=== PATIENT | female | born 1960 | race Caucasian/White ===

== ENCOUNTER 2016-10-14 20:08 | Emergency (ER) | payer OTHER ==
[~2016-10-14] VITALS: Ht 160 cm; Wt 66.3 kg
[~2016-10-14 20:08] MED LIST: ATOR40TA49 PO; ECASA PO; LISI10 PO; LORTA5 PO; VENL75 PO
[2016-10-14 20:14] VITALS: BP 197/91; PULSE 106; RESP 18; TEMP 102.6
--- NOTE | 2016-10-14 20:37 | PD ---
HPI Chief Complaint: Headache Time Seen by Provider: 20:32 Travel History International Travel<30 days: No Contact w/Intl Traveler<30days: No Traveled to known affect area: No History of Present Illness HPI This 55-year-old female says she had an onset of headache around 3:00. At that time she noted that her temp was 103. She has a history of hypertension. She has a history of psoriasis and has arthritis. She has not had a sore throat or cough. He denies dysuria. PFSH Past Medical History Arthritis: Yes (RA) Cardiovascular Problems: Yes High Cholesterol: Yes Cerebrovascular Accident: Yes Genitourinary: No Musculoskeletal: No Neurologic: No Reproductive: No Respiratory: No Para: 2 Past Surgical History Section: Yes Gynecologic Surgery: Yes (2 c-sections) Social History Alcohol Use: Yes (OCCAS) Tobacco Use: Yes Substance Use: No Allergies-Medications (Allergen,Severity, Reaction): Coded Allergies: No Known Allergies (Unverified , 10/14/16) Reported Meds & Prescriptions Reported Meds & Active Scripts Active Prinivil 10 Mg Tab (Lisinopril) 10 Mg Tab 10 Mg PO DAILY Lortab 5/325 Tab (Hydrocodone-Acetaminophen) 1 Tab Tab 1 Tab PO Q6H PRN Lipitor 40 Mg Tab (Atorvastatin Calcium) 40 Mg Tab 20 Mg PO HS 30 Days Ecotrin Regular Strength (Aspirin) 325 Mg Tabec 325 Mg PO DAILY 30 Days Reported Effexor 75 Mg Tab (Venlafaxine HCl) 75 Mg Tab 150 Mg PO DAILY Review of Systems General / Constitutional: Positive: Fever, Chills Eyes: No: Diploplia, Blurred Vision HENT: Positive: Headaches Cardiovascular: No: Chest Pain or Discomfort, Palpitations Respiratory: No: Cough, Shortness of Breath Gastrointestinal: No: Nausea, Vomiting Genitourinary: No: Urgency, Frequency Skin: Positive Rash (psoriasis), No Itching Physical Exam Narrative GENERAL: Well-developed female SKIN: Focused skin assessment warm/dry. HEAD: Atraumatic. Normocephalic. EYES: Pupils equal and round. No scleral icterus. No injection or drainage. ENT: No nasal bleeding or discharge. Mucous membranes pink and moist. NECK: Trachea midline. No JVD. Neck is supple and flexion of the neck does not aggravate her headache CARDIOVASCULAR: Regular rate and rhythm. No murmur appreciated. RESPIRATORY: No accessory muscle use. Clear to auscultation. Breath sounds equal bilaterally. GASTROINTESTINAL: Abdomen soft, non-tender, nondistended. Hepatic and splenic margins not palpable. MUSCULOSKELETAL: No obvious deformities. No clubbing. No cyanosis. No edema. NEUROLOGICAL: Awake and alert. No obvious cranial nerve deficits. Motor grossly within normal limits. Normal speech. PSYCHIATRIC: Appropriate mood and affect; insight and judgment normal. Data Data Last Documented VS Vital Signs Date Time Temp Pulse Resp B/P (MAP) Pulse Ox O2 Delivery O2 Flow Rate FiO2 10/14/16 21:34 102 18 174/90 (118) 97 Room Air 10/14/16 20:43 102.3 Orders Orders Complete Blood Count With Diff (10/14/16 20:31) Basic Metabolic Panel (Bmp) (10/14/16 20:31) Urinalysis - C+S If Indicated (10/14/16 20:31) Acetaminophen (Tylenol) (10/14/16 20:45) Influenzae A/B Antigen (10/14/16 20:32) Labs Laboratory Tests Test 10/14/16 20:57 White Blood Count 10.4 TH/MM3 Red Blood Count 4.27 MIL/MM3 Hemoglobin 12.2 GM/DL Hematocrit 35.6 % Mean Corpuscular Volume 83.4 FL Mean Corpuscular Hemoglobin 28.6 PG Mean Corpuscular Hemoglobin Concent 34.3 % Red Cell Distribution Width 12.3 % Platelet Count 308 TH/MM3 Mean Platelet Volume 7.3 FL Neutrophils (%) (Auto) 75.4 % Lymphocytes (%) (Auto) 18.4 % Monocytes (%) (Auto) 4.8 % Eosinophils (%) (Auto) 0.7 % Basophils (%) (Auto) 0.7 % Neutrophils # (Auto) 7.8 TH/MM3 Lymphocytes # (Auto) 1.9 TH/MM3 Monocytes # (Auto) 0.5 TH/MM3 Eosinophils # (Auto) 0.1 TH/MM3 Basophils # (Auto) 0.1 TH/MM3 CBC Comment DIFF FINAL Differential Comment Urine Color YELLOW Urine Turbidity CLEAR Urine pH 8.5 Urine Specific Halfway 1.014 Urine Protein NEG mg/dL Urine Glucose (UA) NEG mg/dL Urine Ketones NEG mg/dL Urine Occult Blood NEG Urine Nitrite NEG Urine Bilirubin NEG Urine Leukocyte Esterase NEG Urine WBC 0-2 /hpf Urine Squamous Epithelial Cells 0-5 /hpf Microscopic Urinalysis Comment CULT NOT INDICATED Blood Urea Nitrogen 14 MG/DL Creatinine 0.75 MG/DL Random Glucose 101 MG/DL Calcium Level 9.0 MG/DL Sodium Level 134 MEQ/L Potassium Level 4.2 MEQ/L Chloride Level 100 MEQ/L Carbon Dioxide Level 26.5 MEQ/L Anion Gap 8 MEQ/L Estimat Glomerular Filtration Rate 80 ML/MIN [facility] Medical Decision Making Medical Screen Exam Complete: Yes Emergency Medical Condition: Yes Medical Record Reviewed: Yes Differential Diagnosis Differential includes UTI, viral syndrome, headache secondary to fever, hypertension Narrative Course White count is 10,000. Urine is negative for infection. Influenza test is negative. Impression is viral illness with headache. She'll be released Diagnosis Primary Impression: Viral illness Additional Instructions: Take Tylenol or Motrin for fever Disposition: 01 DISCHARGE HOME Condition: Stable Tc Cisse MD Oct 14, 2016 20:37
[2016-10-14 20:42] VITALS: BP 182/92; PULSE 102; RESP 18; TEMP 102.3; O2SAT 96
[2016-10-14 20:43] VITALS: BP 182/92; PULSE 102; RESP 18; TEMP 102.3; O2SAT 96
[2016-10-14] MEDS ORDERED: ACETAMINOPHEN 325 MG TAB PO ONE (20:45)
[2016-10-14 21:06] LABS: AUTOMATED NEUTROPHIL # 7.8 TH/MM3 (1.8-7.7); BASOPHIL # 0.1 TH/MM3 (0-0.2); BASOPHIL % 0.7 % (0.0-2.0); EOSINOPHIL # 0.1 TH/MM3 (0-0.4); EOSINOPHIL % 0.7 % (0.0-4.0); HEMATOCRIT 35.6 % (35.0-46.0); LYMPH % 18.4 % (9.0-44.0); LYMPHOCYTE # 1.9 TH/MM3 (1.0-4.8); MEAN CELL VOLUME 83.4 FL (80.0-100.0); MEAN CORPUSCULAR HEMOGLOBIN 28.6 PG (27.0-34.0); MEAN CORPUSCULAR HGB CONC 34.3 % (32.0-36.0); MONO % 4.8 % (0.0-8.0); NEUT % 75.4 % (16.0-70.0); PLATELET COUNT 308 TH/MM3 (150-450); RED BLOOD COUNT 4.27 MIL/MM3 (4.00-5.30); RED CELL DISTRIBUTION WIDTH 12.3 % (11.6-17.2); WHITE BLOOD COUNT 10.4 TH/MM3 (4.0-11.0)
[2016-10-14 21:07] LABS: BLOOD, URINE NEG (NEG); GLUCOSE,URINE NEG (NEG); KETONE, URINE NEG (NEG); NITRITE,URINE NEG (NEG); PH, URINE 8.5 (5.0-8.5)
[2016-10-14 21:10] LABS: HEMO FLAGS DIFF FINAL
[2016-10-14 21:12] LABS: COMMENT (UR) CULT NOT INDICATED; CULTURE IF INDICATED CULT NOT INDICATED; SQUAMOUS EPITHELIAL CELL URINE 0-5 /hpf (0-5); URINE COLOR YELLOW (YELLW/STRAW); WBC, URINE 0-2 /hpf (0-5)
[2016-10-14 21:16] LABS: POTASSIUM 4.2 MEQ/L (3.5-5.1)
[2016-10-14 21:19] LABS: BICARBONATE 26.5 MEQ/L (21.0-32.0)
[2016-10-14 21:34] VITALS: BP 174/90; PULSE 102; RESP 18; O2SAT 97
[2016-10-14 22:01] VITALS: BP 167/81; TEMP 101.3
== END 2016-10-14 22:11 | disposition home or self-care (01) ==
LOC: PHED 20:08
DX: B34.9 Viral infection, unspecified (principal); E78.00 Pure hypercholesterolemia, unspecified; I10 Essential (primary) hypertension; Z86.73 Personal history of transient ischemic attack (TIA), and cerebral infarction without residual deficits
CPT/HCPCS: 80048; 81001; 85025; 87804; 99283

== ENCOUNTER 2016-11-28 14:47 | Emergency (ER) | payer OTHER ==
[~2016-11-28] VITALS: Ht 160 cm; Wt 64.6 kg
[2016-11-28 15:06] VITALS: BP 158/79; PULSE 84; RESP 16; TEMP 98.6; O2SAT 100
[2016-11-28] MEDS ORDERED: LISI-515 PO (15:15)
[2016-11-28] MEDS ORDERED: ROSU5 PO (15:15)
[2016-11-28] MEDS ORDERED: VENL75TA PO (15:15)
[2016-11-28] MEDS ORDERED: LIDOCAINE HCL 1% 50 ML VIAL INFIL ONE (16:15)
--- NOTE | 2016-11-28 16:16 | PD ---
HPI Chief Complaint: Bite or Sting Time Seen by Provider: 15:47 Travel History International Travel<30 days: No Contact w/Intl Traveler<30days: No Traveled to known affect area: No History of Present Illness HPI 55-year-old female presents to the emergency room for evaluation of draining abscess to her left breast. Patient states 4 days ago she felt a sudden bug bite her under her left breast. It was never itchy but hurt right away. Patient states she kept thinking it would go away but instead enlarged and became painful. She did not notice any draining until today. Patient denies fever, chills, nausea, and vomiting. PFSH Past Medical History Arthritis: Yes (RA) Autoimmune Disease: Yes (PSORIASIS) Cardiovascular Problems: Yes High Cholesterol: Yes Cerebrovascular Accident: Yes Diabetes: No Diminished Hearing: No Gastrointestinal Disorders: No Genitourinary: No Hypertension: Yes Musculoskeletal: No Neurologic: No Reproductive: No Respiratory: No Tetanus Vaccination: Unknown ?: Not Menopausal: Yes Para: 2 Past Surgical History Section: Yes Gynecologic Surgery: Yes (2 c-sections) Social History Alcohol Use: Yes (OCCAS) Tobacco Use: Yes (1/2 PPD) Substance Use: No Allergies-Medications (Allergen,Severity, Reaction): Coded Allergies: No Known Allergies (Unverified , 11/28/16) Reported Meds & Prescriptions Reported Meds & Active Scripts Active Reported Crestor (Rosuvastatin Calcium) 5 Mg Tab Unknown Dose PO WEEKLY Lisinopril 20 Mg Tab 20 Mg PO DAILY Effexor (Venlafaxine HCl) 75 Mg Tab 150 Mg PO DAILY Review of Systems Except as stated in HPI: all other systems reviewed are Neg Physical Exam Narrative GENERAL: Well-nourished, well-developed female in no acute distress. Afebrile. Ambulatory. SKIN: Focused skin assessment warm/dry. There is an indurated area under the left breast which measures about 2 cm in diameter. It is fluctuant with spontaneous purulent drainage. There is a zone of inflammation around it but no lymphangitis.ss HEAD: Normocephalic. EYES: No scleral icterus. No injection or drainage. NECK: Supple, trachea midline. No JVD or lymphadenopathy. CARDIOVASCULAR: Regular rate and rhythm without murmurs, gallops, or rubs. RESPIRATORY: Breath sounds equal bilaterally. No accessory muscle use. PSYCHIATRIC: No delusional thought processes. No hallucinations. Data Data Last Documented VS Vital Signs Date Time Temp Pulse Resp B/P (MAP) Pulse Ox O2 Delivery O2 Flow Rate FiO2 11/28/16 15:06 98.6 84 16 158/79 (105) 100 Orders Orders Lidocaine 1% Inj (50 Ml) (Xylocaine 1% I (11/28/16 16:15) MDM Medical Decision Making Medical Screen Exam Complete: Yes Emergency Medical Condition: Yes Medical Record Reviewed: Yes Differential Diagnosis Abscess, folliculitis, cellulitis Narrative Course 55 year-old female presents to the emergency room for evaluation of abscess underneath her left breast that she first noticed 4 days ago. Patient states she was bit by a bug but it worsened over time. Never itchy. No systemic signs of infection. Physical exam reveals a 3 cm area of induration. It is spontaneously draining purulent discharge. The open area was extended, see procedure for details patient patient discharged with a prescription for Bactrim and told to follow-up with a PCP or return for worsening symptoms. She understands and agrees to plan. Procedures Procedure Narrative INCISION AND DRAINAGE OF ABSCESS: The area was prepped and was sterilely draped. A subcutaneous wheal of 1% lidocaine with a total number 2 mL was used to anesthetize the area properly. A number 11 scalpel was used to extend the spontaneously draining wound 0.5 cm superficially. The abscess was drained, complex loculations were broken down, and irrigated with normal saline. Cultures were obtained. Sterile dressing applied. Diagnosis Primary Impression: Abscess Referrals: Primary Care Physician Additional Instructions: Rest and drink plenty of fluids. Take Bactrim as directed, until gone. Follow up with a primary care physician. Return to emergency room for worsening symptoms, as discussed. Disposition: 01 DISCHARGE HOME Condition: Stable Bee Miguel Nov 28, 2016 16:16
[2016-11-28] MEDS ORDERED: BACT800T5 PO (16:25)
== END 2016-11-28 16:44 | disposition home or self-care (01) ==
LOC: PHEFT 14:47
DX: N61.1 Abscess of the breast and nipple (principal); E78.5 Hyperlipidemia, unspecified; Z86.73 Personal history of transient ischemic attack (TIA), and cerebral infarction without residual deficits; I10 Essential (primary) hypertension; M06.9 Rheumatoid arthritis, unspecified; F17.200 Nicotine dependence, unspecified, uncomplicated; Z79.899 Other long term (current) drug therapy
CPT/HCPCS: 10060; 86403; 87070; 87185; 87205